=== PATIENT | female | born 1940 | race Caucasian/White ===

== ENCOUNTER 2018-01-21 18:27 | Inpatient (IN) | payer OTHER ==
[~2018-01-21] VITALS: Ht 165.1 cm; Wt 55.8 kg
[~2018-01-21 18:27] MED LIST: L-LYSINE PO; NEURONTIN 300M300 M2 PO; NORTRIPTYLINE H10 M1 PO; NORTRIPTYLINE H25 M3 PO; VITAMIN D32000 UNI1 PO; VITCB500GO PO; [UNRECOGNIZED DRUG - OTHER] PO
[2018-01-21 18:28] VITALS: BP 128/81
[2018-01-21] MEDS ORDERED: PROBIOTIC1 EAC1 PO (19:59)
[2018-01-21 20:12] LABS: ABSOLUTE NEUTROPHILS 8.9 thou/uL (1.4-8.2); BASOPHILS 0.2 % (0.0-2.0); EOSINOPHILS 0.9 % (0.0-3.0); HEMATOCRIT 44.5 % (37.0-47.0); HEMOGLOBIN 15.5 gm/dL (12.0-15.0); LYMPHOCYTES 8.5 % (24.0-44.0); MCH 32.4 pg (26.0-34.0); MCHC 34.8 g/dL (28.0-37.0); MONOCYTES 9.3 % (1.0-8.0); PLATELET COUNT 244 thou/uL (150-400); POLYS 81.1 % (36.0-66.0); RBC 4.79 mil/uL (4.20-5.00); RDW 13.5 % (10.5-14.5); WBC 10.9 thou/uL (4.0-11.0)
[2018-01-21 20:18] LABS: CALCIUM 9.6 mg/dL (8.5-10.1); CREATININE 0.9 mg/dL (0.6-1.0); POTASSIUM 3.6 mmol/L (3.5-5.1)
[2018-01-21 20:24] LABS: ALBUMIN 3.4 g/dL (3.4-5.0); DIRECT BILIRUBIN 0.2 mg/dL (<0.1-0.3); TOTAL BILIRUBIN 0.8 mg/dL (<0.1-1.0); TOTAL PROTEIN 7.3 g/dL (6.4-8.2)
[2018-01-22 01:02] VITALS: BP 128/80
[2018-01-22 01:05] VITALS: BP 111/59
[2018-01-22 04:38] VITALS: BP 109/67
[2018-01-22 08:00] VITALS: BP 98/56
[2018-01-22 15:41] VITALS: BP 121/67
[2018-01-22 19:03] VITALS: BP 127/75
[2018-01-23 04:25] VITALS: BP 131/69
[2018-01-23 08:00] VITALS: BP 114/63
[2018-01-23 12:29] LABS: HEMATOCRIT 41.4 % (37.0-47.0); HEMOGLOBIN 13.8 gm/dL (12.0-15.0); MCH 31.4 pg (26.0-34.0); MCHC 33.4 g/dL (28.0-37.0); RBC 4.4 mil/uL (4.20-5.00); RDW 13.7 % (10.5-14.5); WBC 7.3 thou/uL (4.0-11.0)
[2018-01-23 12:40] LABS: CALCIUM 8.9 mg/dL (8.5-10.1); CREATININE 0.7 mg/dL (0.6-1.0); POTASSIUM 4.7 mmol/L (3.5-5.1)
[2018-01-23 15:20] VITALS: BP 119/64
[2018-01-23 20:00] VITALS: BP 133/74
[2018-01-24 04:00] VITALS: BP 127/72
[2018-01-24 08:29] VITALS: BP 142/72
[2018-01-24 16:16] VITALS: BP 126/69
[2018-01-24 19:59] VITALS: BP 144/72
[2018-01-25 05:57] VITALS: BP 151/71
[2018-01-25] MEDS ORDERED: FLAGYL500 MG PO (08:06)
[2018-01-25] MEDS ORDERED: CIPRO500 MG PO (08:07)
[2018-01-25 08:32] VITALS: BP 143/74
[2018-01-25 14:32] VITALS: BP 143/74
== END 2018-01-25 17:00 | disposition home or self-care (01) | DRG 393 ==
LOC: ER 18:27 → EROBS 23:12 → 4W 23:12 → ENTRNSPT 01-25 16:40 → 4W 01-25 17:00
PROVIDERS: Emergency Medicine; Family Medicine
PROC: B4151ZZ Fluoroscopy of Inferior Mesenteric Artery using Low Osmolar Contrast (ICD-10-PCS; principal; 2018-01-24)
DX: K55.9 Vascular disorder of intestine, unspecified (principal); K55.069 Acute infarction of intestine, part and extent unspecified; K92.2 Gastrointestinal hemorrhage, unspecified; K52.9 Noninfective gastroenteritis and colitis, unspecified; M81.0 Age-related osteoporosis without current pathological fracture; E86.0 Dehydration; A03.9 Shigellosis, unspecified; I95.9 Hypotension, unspecified; Z98.42 Cataract extraction status, left eye; Z88.6 Allergy status to analgesic agent; Z88.8 Allergy status to other drugs, medicaments and biological substances; Z79.899 Other long term (current) drug therapy
CPT/HCPCS: 10045

== ENCOUNTER 2018-02-06 10:15 | Inpatient (IN) | payer OTHER ==
[~2018-02-06] VITALS: Ht 160 cm; Wt 56.7 kg
--- NOTE | ~2018-02-06 | EKG ---
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 : [id number] Requested By: Rehan Ochoa Order Number: [id number] MD: Tylor Up Measurements Intervals [place] Rate: 80 P: 49 [place]: 158 QRS: -27 QRSD: 85 T: -6 QT: 397 QTc: 458 Interpretive Statements Sinus rhythm Atrial premature complex Borderline left axis deviation Borderline T abnormalities, inferior leads Compared to ECG 08/06/2009 12:39:48 Atrial premature complex(es) now present Right ventricular hypertrophy now present T-wave abnormality now present Electronically Signed On 02-06-2018 17:04:51 CDT by Tylor Up [email or web address] <ELECTRONICALLY SIGNED> By: Tylor Up MD 02/06/18 1704 1145 1145 Tylor Up MD /EPI
[~2018-02-06 10:15] MED LIST changes: +CIPRO500 MG PO; +FLAGYL500 MG PO; +PROBIOTIC1 EAC1 PO
[2018-02-06 11:00] VITALS: BP 192/103
[2018-02-06 11:49] LABS: BASOPHILS 0.7 % (0.0-2.0); EOSINOPHILS 0.6 % (0.0-3.0); HEMATOCRIT 45.5 % (37.0-47.0); HEMOGLOBIN 15.4 gm/dL (12.0-15.0); LYMPHOCYTES 12.1 % (24.0-44.0); MCH 31.6 pg (26.0-34.0); MCHC 33.9 g/dL (28.0-37.0); MCV 93.4 fL (80.0-100.0); MONOCYTES 10.4 % (1.0-8.0); PLATELET COUNT 343 thou/uL (150-400); POLYS 76.2 % (36.0-66.0); RBC 4.87 mil/uL (4.20-5.00); WBC 6.6 thou/uL (4.0-11.0)
[2018-02-06 11:55] LABS: ANION GAP 6 mmol/L (7-16); BUN 16 mg/dL (7-18); CALCIUM 9.4 mg/dL (8.5-10.1); CHLORIDE 105 mmol/L (98-107); CO2 29 mmol/L (21-32); CREATININE 0.9 mg/dL (0.6-1.0); GLUCOSE 103 mg/dL (74-106); POTASSIUM 4.1 mmol/L (3.5-5.1); SODIUM 140 mmol/L (136-145)
[2018-02-06 12:04] LABS: ALBUMIN 3.4 g/dL (3.4-5.0); SGOT 21 U/L (15-37); SGPT 25 U/L (30-65); TOTAL BILIRUBIN 0.8 mg/dL (<0.1-1.0); TOTAL PROTEIN 7.1 g/dL (6.4-8.2); TROPONIN-I < 0.04 ng/mL (<0.06)
[2018-02-06 13:21] VITALS: BP 175/93
[2018-02-06 13:21] LABS: URINE BILIRUBIN NEGATIVE (Negative); URINE BLOOD 1+ (Negative); URINE CLARITY CLEAR; URINE COLOR YELLOW; URINE GLUCOSE-RANDOM* NEGATIVE (Negative); URINE KETONES TRACE (Negative); URINE LEUKOCYTES-REFLEX NEGATIVE (Negative); URINE NITRITE-REFLEX NEGATIVE (Negative); URINE PROTEIN (DIPSTICK) 3+ (Negative); URINE UROBILINOGEN 0.2 E.U./dl (0.2-1.0)
[2018-02-06 13:33] LABS: BACTERIA-REFLEX 1-9 Few /HPF (None Seen); CASTS None Seen /LPF (None Seen); CRYSTALS None Seen /LPF (None Seen); SQUAMOUS None Seen /LPF (0-3); URINE RBC 0-2 Rare /HPF (0-2); URINE WBC-REFLEX None Seen /HPF (0-5)
[2018-02-06 15:12] VITALS: BP 165/92
[2018-02-06 19:50] VITALS: BP 104/64
[2018-02-06 23:32] VITALS: BP 106/57
[2018-02-07 04:00] VITALS: BP 129/81
[2018-02-07 07:37] VITALS: BP 134/70
[2018-02-07 11:38] VITALS: BP 125/66
[2018-02-07] MEDS ORDERED: PEPCID20 MG PO (12:56)
[2018-02-07 13:02] VITALS: BP 125/66
== END 2018-02-07 14:09 | disposition home or self-care (01) | DRG 77 ==
LOC: ER 10:15 → EROBS 13:08 → 2N 13:08
PROVIDERS: Emergency Medicine
DX: I67.4 Hypertensive encephalopathy (principal); J18.9 Pneumonia, unspecified organism; K29.70 Gastritis, unspecified, without bleeding; I16.0 Hypertensive urgency; K52.9 Noninfective gastroenteritis and colitis, unspecified; R41.0 Disorientation, unspecified; M81.0 Age-related osteoporosis without current pathological fracture; B37.9 Candidiasis, unspecified; Z88.6 Allergy status to analgesic agent; Z88.8 Allergy status to other drugs, medicaments and biological substances; Z98.42 Cataract extraction status, left eye; Z98.41 Cataract extraction status, right eye
CPT/HCPCS: 10081